=== PATIENT | female | born 1990 | race African-American/Black ===

== ENCOUNTER 2021-10-28 00:47 | Emergency (ER) | payer BC ==
[~2021-10-28] VITALS: Ht 162.6 cm; Wt 104.3 kg
[2021-10-28 00:56] VITALS: BP 148/80
[2021-10-28] MEDS ORDERED: COZAAR 25 MG TA25 M1 PO (01:01)
[2021-10-28] MEDS ORDERED: NAPROSYN500 MG PO (01:19)
== END 2021-10-28 01:36 | disposition home or self-care (01) ==
LOC: ER 00:47
DX: S00.83XA Contusion of other part of head, initial encounter (principal); J45.909 Unspecified asthma, uncomplicated; Z98.890 Other specified postprocedural states; Z88.0 Allergy status to penicillin; Z88.1 Allergy status to other antibiotic agents; W06.XXXA Fall from bed, initial encounter; Y93.89 Activity, other specified; Y92.89 Other specified places as the place of occurrence of the external cause; Y99.8 Other external cause status